=== PATIENT | female | born 1995 | race Caucasian/White ===

== ENCOUNTER → 2021-08-28 15:00 | Outpatient (CLI) | payer OTHER, SELFPAY ==
--- NOTE | ~2021-08-28 | US_ITS ---
EXAMINATION: US OB <= 14 weeks fetus DATE: 08/28/2021 15:22 INDICATION: Uncertain gestational dates TECHNIQUE: Real-time transabdominal obstetric ultrasound. FINDINGS: No prior studies for comparison. The uterus measures 14.6 x 7.6 x 8.6 cm. There is an intrauterine gestational sac, with pole id entified. The crown rump length measures 3.63 cm, which correlates with a estimated gestational age of 10 weeks 4 days. heart tones are identified measuring 165 bpm. There is a small subchorion ic hemorrhage near the fundus measuring 11 x 10 x 7 mm. There is a left ovarian cyst measuring 2.4 cm . IMPRESSION: 1. SL IUP with an EGA of 10 weeks weeks, 4 days (EDC by current ultrasound of 03/22/2022). 2: Small subchorionic hemorrhage near the fundus. Reviewed, dictated and finalized at location A. 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 SL IUP with an EGA of 10 weeks weeks, 4 days (EDC by current ultrasound of 0 03/22/2022). 2: Small subchorionic hemorrhage near the fundus.
== END ==
PROVIDERS: Visit Provider Nurse Practitioner
DX: Z34.91 Encounter for supervision of normal pregnancy, unspecified, first trimester (principal); Z3A.10 10 weeks gestation of pregnancy
CPT/HCPCS: 76801

== ENCOUNTER → 2021-09-14 13:31 | Outpatient (CLI) | payer OTHER, SELFPAY ==
--- NOTE | ~2021-09-14 | US_ITS ---
EXAMINATION: US OB limited DATE: 09/14/2021 13:50 INDICATION: Subchorionic hematoma during first trimester TECHNIQUE: Real-time ultrasound of the pelvis was performed. The interpreting radiologist was not pre sent for the study. COMPARISON: None. FINDINGS: The uterus measures 16.6 x 6.6 x 10.6 cm. There is a single living fetus in transverse lie. hea rt rate of 152 beats per minute (bpm). No evident subchorionic hematoma. There is a likely incidental placental shelf with small portion of the placental margin appears elevated elevated. The right ovar y measures 2.5 x 1.2 x 2.0 cm. The left ovary measures 4.0 x 3.1 x 4.0 cm containing a 2.9 x 1.9 x 2. 3 similar anechoic likely corpus luteum cyst. No evident free fluid in the pelvis. IMPRESSION: 1. Single living fetus in transverse lie with heart rate of 152 bpm. 2. Likely incidental small placental shelf, the majority of which resolved spontaneously although donovan e persist as a circumvallate placenta. Reviewed, dictated and finalized at location A. 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 Single living fetus in transverse lie with heart rate of 152 bpm. 2. Likely incidental small placental shelf, the majority of which resolved spon taneously although some persist as a circumvallate placenta.
== END ==
PROVIDERS: Visit Provider Obstetrics & Gynecology Gynecology
DX: O36.8910 Maternal care for other specified fetal problems, first trimester, not applicable or unspecified (principal)
CPT/HCPCS: 76815

== ENCOUNTER 2022-03-10 16:18 | Outpatient (CLI) | payer OTHER, SELFPAY ==
[2022-03-10 16:46] VITALS: BP 107/59; PULSE 83
[2022-03-10 16:56] VITALS: BP 107/59; PULSE 83
== END 2022-03-10 17:04 | disposition home or self-care (01) ==
LOC: ANHOBOP 16:54 → ANHLDR 03-20 06:33
PROVIDERS: Visit Provider Obstetrics & Gynecology Gynecology
DX: O42.90 Premature rupture of membranes, unspecified as to length of time between rupture and onset of labor, unspecified weeks of gestation (principal); Z3A.00 Weeks of gestation of pregnancy not specified
CPT/HCPCS: 59025; 84112; 99199

== ENCOUNTER 2022-03-15 15:44 | Inpatient (IN) | payer OTHER, SELFPAY ==
[2022-03-15] VITALS (14 sets, daily range): BP systolic 94–118; BP diastolic 52–72; PULSE 71–110; TEMP 36.4; BMI 30.9
[2022-03-15] MEDS: DINOPROSTONE 10 MG VAG INSERT VAGINAL (17:28)
--- NOTE | 2022-03-15 17:33 | LDADM ---
This patient, Constance Maguire, was admitted to Labor/Delivery/Recovery 109 on 03/15/22 at 15:44. Plans for labor, pain management and were discussed with patient. Patient/family oriented to hospital policies and general routines including ID bracelet, bed and alarms, visiting hours, pain management, procedures, bathroom and other care routines, personal items, smoking policy, room service/diet and guest tray routines, infant security routines, and visiting hours. Patient/Family are encouraged to report perceived risks to care and to ask questions if they do not understand what they are told or what they should do. See OBIX for further documentation.
[2022-03-15 17:48] LABS: Basophils Percent Auto 0.4 % (0.2-1.2); Eosinophils Percent Auto 0.5 % (0-4.4); Hematocrit 34.4 % (37.0-47.0); Hemoglobin 11.8 g/dL (12.0-15.0); Immature Granulocyte Absolute 0.03 K/mm3 (0.00-0.031); Immature Granulocyte Percent A 0.4 % (0-0.5); Lymphocytes Percent Auto 17.8 % (18.3-44.2); Mean Corpuscular HGB Conc 34.3 g/dl (32-36); Mean Corpuscular Hemoglobin 31.9 pg (26-34); Mean Platelet Volume 10.4 fl (7.4-10.4); Monocytes Absolute Auto 0.8 K/mm3 (0.1-0.6); Monocytes Percent Auto 9.4 % (2.6-8.5); Neutrophils Absolute Auto 6.1 K/mm3 (1.3-6.7); Neutrophils Percent Auto 71.5 % (45.5-73.1); Platelet Count Result 249 k/mm3 (150-375); Red Cell Distribution Width 12.4 % (11.5-14.5); White Blood Count 8.4 K/mm3 (4.5-10.0)
--- NOTE | 2022-03-15 18:04 | WPDANESEPP ---
Anes - Eval Pre Procedure Procedure: Labor Epidural Date/Time: 03/15/22 18:04 Surgeon: Jim Pre Op Diagnosis: iol Patient Data Age: 26 Gender: F Height: 1.7 m Weight: 89.5 kg Last Vital Signs Pulse 81 03/15/22 18:00 BP 108/63 03/15/22 18:00 O2 Del Method Room Air 03/15/22 17:31 Allergies Allergy/AdvReac Type Severity Reaction Status Date / Time No Known Allergies Allergy Verified 03/15/22 17:44 Home Medications Medication Instructions Recorded Confirmed Type vit no.95-ferrous 1 tablet PO DAILY 08/29/19 03/15/22 History fumarate 28 mg-folic acid 800 mcg tablet () docusate sodium 100 mg capsule 100 mg PO BID PRN Constipation #60 09/25/19 03/15/22 Rx caps aspirin 81 mg tablet,delayed 81 mg PO DAILY 03/05/22 03/15/22 History release (Mandie Low Dose Aspirin) ergocalciferol (vitamin D2) 1,250 1,250 mcg PO 2XW 03/05/22 03/15/22 History mcg (50,000 unit) capsule (Vitamin D2) Laboratory Tests 03/15/22 03/15/22 03/15/22 16:36 16:36 16:36 WBC Pending RBC Pending Hgb Pending Hct Pending MCV Pending MCH Pending MCHC Pending RDW Pending Plt Count Pending MPV Pending Immature Gran % (Auto) Pending Neut % (Auto) Pending Lymph % (Auto) Pending [place] % (Auto) Pending Eos % (Auto) Pending Baso % (Auto) Pending Lymph # (Auto) Pending [place] # (Auto) Pending Eos # (Auto) Pending Baso # (Auto) Pending Abs Immat Gran (auto) Pending Absolute Neuts (auto) Pending Absolute Nucleated RBC Pending Nucleated RBC % Pending RPR Pending Blood Type Pending Antibody Screen Pending Patient hx anesthesia problems: none Family hx anesthesia problems: none Results Review: All pre-operative results and documents have been reviewed as part of the pre-operative evaluation. [facility] Past Medical History Medical History (normal spontaneous vaginal delivery) Family History Family History Grandparent Family history of Parkinson's disease Family history of pancreatic cancer, Onset Age: 60 Family history of congestive heart failure Family history of cardiovascular disease Social History Social History Smoking status: Never smoker Alcohol intake: current Substance use: never Gender identity (if verbalized by the patient): Female Spiritual care concerns: No Exam Day of Procedure 03/15/22 18:04 Patient weight: obese Heart: regular rate and rhythm Lungs: normal air movement Airway: Mallampati scale Neurological: alert and oriented
[2022-03-16] VITALS (95 sets, daily range): BP systolic 58–133; BP diastolic 32–86; PULSE 59–287; TEMP 35.9–36.8; O2SAT 100
[2022-03-16] MEDS: OXYTOCIN 30 UNITS/NS 500 ML 30 UNITS/500 ML BAG IV CONT (06:51)
[2022-03-16] MEDS: LACTATED RINGERS 1,000 ML 125 ML IV CONT (06:51)
[2022-03-16 07:35] LABS: Rapid Plasma Reagin Non-Reactive (NonReactive)
--- NOTE | 2022-03-16 07:50 | WPDOBADMIT ---
Obstetrics - Admit Note Admission Note: record reviewed. No pertinent additions to the history and/or any subsequent changes in the physical findings that are not consistent with the expected course of the were found. Additions to the history and/or subsequent changes in the physical findings follow. Here for MIL at 39 wks. Cervadil last pm. Now Pitocin. Cervix /pph. FHTs reactive.
--- NOTE | 2022-03-16 12:57 | PM.OBPNLAB ---
Pain Control Date/time seen: 03/16/22 12:57 Pain control: epidural Pelvic Exam Dilation (cm): 3 Effacement (%): 70 station: -3 Amniotic membrane status: Ruptured (AROM with clear fluid) Contractions Contraction pattern: Regular Status status: Category l
[2022-03-17] VITALS (56 sets, daily range): BP systolic 85–258; BP diastolic 51–225; PULSE 63–137; RESP 14–18; TEMP 36.4–37.4; O2SAT 95–100
--- NOTE | 2022-03-17 01:42 | PM.IMHP ---
H&P: HPI History of Present Illness Date/Time: 03/17/22 01:42 Chief Complaint: breech Narrative: 26 yo at 39 2/7 wks here for MIL. Noted by RN to be breech. U/s verified. Recommend to proceed with csection. Reviewed procedure. Patient agrees. Also, as discussed in office and now, if csection, wants BTL. Will proceed with BTL. Risks of failure with increased ectopic if fails discussed. Pt. is aware this is a permanent and irreversible sterilizing procedure. Labs: A+, RPR -; Rubella immune, HIV -, HepBSAg -, GBS-. [facility] Past Medical History Medical History (Updated 03/17/22 @ 01:51 by Violet Fernandez MD) (normal spontaneous vaginal delivery) Surgical History Surgical History (Updated 03/17/22 @ 01:49 by Violet Fernandez MD) H/O laparoscopy 2017-endometriosis Family History Family History Grandparent Family history of Parkinson's disease Family history of pancreatic cancer, Onset Age: 60 Family history of congestive heart failure Family history of cardiovascular disease Social History Social History Smoking status: Never smoker Alcohol intake: current Substance use: never Gender identity (if verbalized by the patient): Female Spiritual care concerns: No Meds Home Medications and Allergies Home Medications Medication Instructions Recorded Confirmed Type vit no.95-ferrous 1 tablet PO DAILY 08/29/19 03/15/22 History fumarate 28 mg-folic acid 800 mcg tablet () docusate sodium 100 mg capsule 100 mg PO BID PRN Constipation #60 09/25/19 03/15/22 Rx caps aspirin 81 mg tablet,delayed 81 mg PO DAILY 03/05/22 03/15/22 History release (Mandie Low Dose Aspirin) ergocalciferol (vitamin D2) 1,250 1,250 mcg PO 2XW 03/05/22 03/15/22 History mcg (50,000 unit) capsule (Vitamin D2) Allergies Allergy/AdvReac Type Severity Reaction Status Date / Time No Known Allergies Allergy Verified 03/15/22 17:44 Vital Signs Vital Signs - 24 hr 03/16/22 05:32 03/16/22 05:30 03/16/22 06:46 Temperature 97.6 F Pulse Rate 93 95 Blood Pressure 115/66 120/74 Pulse Oximetry 03/16/22 07:00 03/16/22 07:15 03/16/22 07:31 Temperature 98 F Pulse Rate 83 84 77 Blood Pressure 117/67 127/65 115/63 Pulse Oximetry 03/16/22 08:31 03/16/22 08:45 03/16/22 09:01 Temperature Pulse Rate 83 79 68 Blood Pressure 111/66 114/70 105/59 L Pulse Oximetry 03/16/22 09:15 03/16/22 09:31 03/16/22 09:45 Temperature Pulse Rate 74 83 77 Blood Pressure 109/68 94/64 L 114/66 Pulse Oximetry 03/16/22 10:00 03/16/22 10:16 03/16/22 10:31 Temperature Pulse Rate 68 76 78 Blood Pressure 121/64 133/67 114/43 L Pulse Oximetry 03/16/22 10:58 03/16/22 10:59 03/16/22 11:03 Temperature Pulse Rate 167 H Blood Pressure 106/81 Pulse Oximetry 100 100 03/16/22 11:07 03/16/22 11:09 03/16/22 11:12 Temperature Pulse Rate 87 Blood Pressure 117/67 Pulse Oximetry 100 100 03/16/22 11:14 03/16/22 11:15 03/16/22 11:16 Temperature Pulse Rate 87 85 86 Blood Pressure 121/71 107/67 117/60 Pulse Oximetry 03/16/22 11:18 03/16/22 11:20 03/16/22 11:22 Temperature Pulse Rate 92 85 91 Blood Pressure 118/74 116/64 117/78 Pulse Oximetry 100 03/16/22 11:23 03/16/22 11:24 03/16/22 11:26 Temperature Pulse Rate 92 97 Blood Pressure 118/67 113/68 Pulse Oximetry 100 03/16/22 11:28 03/16/22 11:31 03/16/22 11:32 Temperature Pulse Rate 93 106 H 94 Blood Pressure 112/74 113/75 109/76 Pulse Oximetry 100 03/16/22 11:33 03/16/22 11:34 03/16/22 11:36 Temperature Pulse Rate 97 73 Blood Pressure 110/69 115/62 Pulse Oximetry 100 03/16/22 11:38 03/16/22 11:40 03/16/22 11:42 Temperature Pulse Rate 98 75 85 Blood Pressure 112/63 106/62 110/55 L Puls
--- NOTE | 2022-03-17 01:52 | PM.OBDSVD ---
DS: Admitting Diagnosis Discharge Date 03/19/22 Admitting Diagnosis 39 wks for RIKKI DS: Discharge Diagnosis Discharge Diagnosis (1) 39 weeks gestation of : Code(s): Z3A.39 - 39 weeks gestation of Status: Acute (2) Breech presentation: Code(s): O32.1XX0 - Maternal care for breech presentation, not applicable or unspecified Status: Acute (3) Encounter for sterilization: Code(s): Z30.2 - Encounter for sterilization Status: Acute (4) delivery delivered: Code(s): O82 - Encounter for delivery without indication Status: Acute OB - DS: Summary OB Procedures : Ultrasound OB Procedures Intrapartum: low cervical, transverse and Tubal ligation OB Procedures: : None Peripartum Data Infant Delivery Method: Section Procedures: Procedures Operation Date: 03/17/22 01:45 <No data on this case meets the specified criteria> Status at Discharge Functional status at discharge: independent ambulation Overall status at discharge: patient is progressing back to baseline Time Spent with Patient Time attestation: Total time spent providing and/or coordinating discharge services: DS: Data Data Completed and Pending Labs on day of discharge: Labs from last 24 hours 03/15/22 16:36 RPR Non-reactive Discharge Plan Discharge Attending physician on discharge: Violet Fernandez Discharging Clinician: Violet Fernandez Anticipated Discharge Date/Time: 03/20/22 01:53 Patient Disposition: Home, Self-Care Activity: may shower, may drive after 2 weeks and pelvic rest Diet: regular Wound Care Instructions: incision open to air Patient Instructions: Antibiotic Form Stand Alone Forms: General Discharge Information Follow-up/Referrals: Violet Fernandez MD [Physician] - 1 Week (and 6 wk) Discharge Medications: Continued PNV cmb#95-ferrous fumarate-FA [] 28 mg iron- 800 mcg Tablet 1 tablet PO DAILY docusate sodium 100 mg Capsule 100 mg PO BID PRN (Reason: Constipation) Qty: 60 0RF ergocalciferol (vitamin D2) [Vitamin D2] 1,250 mcg (50,000 unit) Capsule 1,250 mcg PO 2XW Discontinued aspirin [Mandie Low Dose Aspirin] 81 mg Tablet,Delayed Release (Dr/Ec) 81 mg PO DAILY Date of admission: 03/15/22 15:44 Primary Care Provider: PHYSICIAN,AUTOMATIC LATHE SETTER Admitting Provider: Violet Fernandez Attending physician on admission: Violet Fernandez Condition: Stable
[2022-03-17] MEDS: ceFAZolin 2 GM/D5W 50 ML 2 GM/50 ML BAG IVPB (01:53)
--- NOTE | 2022-03-17 01:59 | W.PM.PROC2 ---
Procedure Note - Detailed Date of Procedure 03/17/22 Pre-op Diagnosis 39 weeks breech Requests sterilization Post-op Diagnosis Same Procedure Performed LTCS and BTL Surgeon Violet Fernandez MD Anesthesia Epidural Findings Female infant 7lb 8oz complete breech presentation with Apgars of 8 [id number] 9 [id number]. Normal-appearing uterus, tubes, and ovaries. The tubes are noted to be shorter than average Description of Procedure the patient is taken to the operating room and placed under anesthesia in the dorsal supine position with a leftward tilt. Once anesthesia was deemed adequate, she was prepped and draped. The Pfannenstiel skin incision was made with a scalpel and carried down to the underlying layer of fascia. Fascia was nicked in the midline with a scalpel and extended laterally using Tenorio scissors. Ochsner was used to tent the fascia which was then dissected off using sharp and blunt dissection. The rectus muscles were in the midline and the peritoneum tented with a [place]. The peritoneum was entered with Metzenbaum scissors. The incision was extended with blunt traction. The bladder blade is placed. The vesicouterine peritoneum was grasped and entered with Metzenbaum scissors. The incision was extended laterally and the bladder flap created digitally. The lower urine segment was incised in a transverse fashion with the scalpel. The breech is identified and elevated into the incision. The infant was fully delivered to the scapula and was then rotated to allow delivery of the right arm which was splinted and delivered. The infant was rotated and the left arm was splinted and delivered and the head spontaneously delivered. The cord was clamped and cut and the infant handed to the waiting nursery nurse. Cord gases and bladder taken. The placenta was removed using manual traction. The uterus is cleared of all clots and debris and exteriorized. The uterine incision was closed using 0 Monocryl in a running locked fashion. Same suture was used to imbricate. Good hemostasis is noted. The patient was asked to additional time if she was proceeding with the tubal ligation and she stated she wanted to proceed. The right tube was grasped with a [place] and the distal 2/3 of the tube are cross clamped with [place] clamp. The tube was excised. The pedicle is tied off using 0 Vicryl in a Loki stitch and then free tied. The identical procedure was performed on the opposite side. Good hemostasis is noted at both tubal sites. The cul-de-sac is irrigated and the uterus returned to the abdomen. The incision was again inspected and noted to be hemostatic. The fascia was closed using 0 Vicryl in a running fashion. Subcutaneous tissues were irrigated and made hemostatic using Bovie cautery. Skin incision was closed using 4-0 Vicryl in a subcuticular fashion. Dermaflex was placed over the incision. Ancef was given prior to incision. Sponge, needle, and instrument counts are correct per the OR staff. Patient was taken to the recovery room in stable condition. Estimated Blood Loss 585 Drains Yes (perry) Pathology Yes (tubes) Complications No immediate complications Condition Stable Disposition Floor
--- NOTE | 2022-03-17 02:22 | WPDANESEPPF ---
Anes - Initial Pre Proc Eval Procedure: Operation Date: 03/17/22 01:45 Proposed Procedures p Section - Violet Fernandez MD Date/Time: 03/17/22 02:22 Surgeon: Violet Fernandez MD Pre Op Diagnosis: iol Patient Data Age: 26 Gender: F Height: 1.7 m Weight: 89.5 kg Last Vital Signs Temp 36.7 C 03/17/22 00:37 Pulse 137 H 03/17/22 01:30 BP 110/93 H 03/17/22 01:30 Pulse Ox 100 03/16/22 11:53 O2 Del Method Room Air 03/15/22 17:31 Allergies Allergy/AdvReac Type Severity Reaction Status Date / Time No Known Allergies Allergy Verified 03/15/22 17:44 Home Medications Medication Instructions Recorded Confirmed Type vit no.95-ferrous 1 tablet PO DAILY 08/29/19 03/15/22 History fumarate 28 mg-folic acid 800 mcg tablet () docusate sodium 100 mg capsule 100 mg PO BID PRN Constipation #60 09/25/19 03/15/22 Rx caps aspirin 81 mg tablet,delayed 81 mg PO DAILY 03/05/22 03/15/22 History release (Mandie Low Dose Aspirin) ergocalciferol (vitamin D2) 1,250 1,250 mcg PO 2XW 03/05/22 03/15/22 History mcg (50,000 unit) capsule (Vitamin D2) Laboratory Tests 03/15/22 16:36 RPR Non-reactive (NonReactive) Patient hx anesthesia problems: none Family hx anesthesia problems: none Results Review: All pre-operative results and documents have been reviewed as part of the pre-operative evaluation. [facility] Past Medical History Medical History (Updated 03/17/22 @ 01:52 by Violet Fernandez MD) (normal spontaneous vaginal delivery) Surgical History Surgical History (Updated 03/17/22 @ 01:49 by Violet Fernandez MD) H/O laparoscopy 2017-endometriosis Family History Family History Grandparent Family history of Parkinson's disease Family history of pancreatic cancer, Onset Age: 60 Family history of congestive heart failure Family history of cardiovascular disease Social History Social History Smoking status: Never smoker Alcohol intake: current Substance use: never Gender identity (if verbalized by the patient): Female Spiritual care concerns: No Anes - Eval Final PreProcedure Day of Procedure 03/17/22 02:22 Patient weight: obese Heart: regular rate and rhythm Lungs: clear to auscultation and normal air movement Airway: Mallampati scale class II Neurological: alert and oriented Last oral intake: >/= 8 hours ASA classification: II Emergent: no Anesthetic plan: proceed Anesthesia type and monitoring: regional spinal and standard monitoring Results Review: All pre-operative results and documents have been reviewed as part of the pre-operative evaluation. Informed Consent: The patient's anesthetic plan and its attendant risks and benefits were discussed with the patient/family/POA. Questions were solicited and answers provided to the satisfaction of the patient/family/POA.
[2022-03-17] MEDS: OXYTOCIN 30 UNITS/NS 500 ML 30 UNITS/500 ML BAG 125 UNITS IV CONT (04:58)
--- NOTE | 2022-03-17 05:38 | PC.NURSE ---
This patient, Constance Maguire, was received from [labor and delivery ] on 03/17/22 at 0516. Patient/family oriented to unit policies and routines
[2022-03-17] MEDS: LORATADINE 10 MG TABLET PO (07:29)
[2022-03-17] MEDS: ONDANSETRON INJ 4 MG/2 ML VIAL IV PUSH (09:34)
[2022-03-17] MEDS: DEXTROSE 5%/0.45% SOD CHL 1,000 ML 125 ML IV CONT (09:34)
[2022-03-17] MEDS: DOCUSATE SODIUM 100 MG CAPSULE PO (17:28)
[2022-03-18 04:32] LABS: Basophils Percent Auto 0.3 % (0.2-1.2); Eosinophils Absolute Auto 0.1 K/mm3 (0-0.3); Eosinophils Percent Auto 0.6 % (0-4.4); Hematocrit 28.8 % (37.0-47.0); Immature Granulocyte Absolute 0.06 K/mm3 (0.00-0.031); Immature Granulocyte Percent A 0.5 % (0-0.5); Lymphocytes Absolute Auto 1.28 K/mm3 (0.9-3.2); Lymphocytes Percent Auto 11.3 % (18.3-44.2); Mean Corpuscular HGB Conc 34.7 g/dl (32-36); Mean Corpuscular Hemoglobin 32.5 pg (26-34); Mean Corpuscular Volume 93.5 fl (80-100); Mean Platelet Volume 10.1 fl (7.4-10.4); Monocytes Absolute Auto 0.9 K/mm3 (0.1-0.6); Monocytes Percent Auto 8.2 % (2.6-8.5); Neutrophils Percent Auto 79.1 % (45.5-73.1); Platelet Count Result 191 k/mm3 (150-375); Red Blood Count 3.08 M/mm3 (4.2-5.4); Red Cell Distribution Width 12.5 % (11.5-14.5); White Blood Count 11.3 K/mm3 (4.5-10.0)
--- NOTE | 2022-03-18 07:22 | WPDANLDPN2 ---
Anes-Prog Note L&D Date/Time: 03/18/22 07:22 Comfortable throughout: section Neuraxial method: epidural Neuro status: Neuro function grossly intact. Cardiovascular status: normal Respiratory status: normal Airway patency: baseline Mental status: baseline Post-Op hydration status: normal Vital Signs: Last Vital Signs Temp 37.1 C 03/17/22 23:00 Pulse 78 03/17/22 23:00 Resp 18 03/17/22 23:00 BP 100/54 L 03/17/22 23:00 Pulse Ox 99 03/17/22 04:39 O2 Del Method Room Air 03/17/22 23:00 Pain score (VAS): <3 I/O: Intake & Output 03/17/22 03/17/22 03/18/22 15:59 23:59 07:59 Intake Total 100 1400 Output Total 1100 2450 Balance -1000 -1050 Patient feedback: Patient satisfied with anesthetic care.
--- NOTE | 2022-03-18 07:23 | WPDANLDNPN2 ---
Anes-Prog Note L&D-Neuraxial Date/Time: 03/18/22 07:23 Neuraxial medications: epidural PF morphine Opiod-related complaints: none Patient feedback: Patient satisfied with post-operative pain management.
--- NOTE | 2022-03-18 07:45 | PC.NURSE ---
PT introductions made and plan of care discussed per post op c section, pain management, daily care activities and breast feeding. PT received instructions per one to one discussion, mom baby care guide and demonstrations this shift. PT and spouse both recipients of such instructions and no barriers to learning identified at this time. PT eager to be instructed and verbalized understanding of such instructions.
[2022-03-18] MEDS: MULTIVIT/MIN/PREN/FOL AC/IRON TABLET 1 TAB PO (09:09)
[2022-03-18] MEDS: DOCUSATE SODIUM 100 MG CAPSULE PO ×2 (09:10→17:43)
[2022-03-18] MEDS: IBUPROFEN 600 MG TABLET PO ×2 (09:11→17:42)
[2022-03-18] MEDS: ACETAMINOPHEN 325 MG TABLET 650 MG PO ×2 (09:11→17:42)
[2022-03-18] MEDS: LANOLIN (LANSINOH) 7.5 GM CREAM 1 APPLIC TOPICAL (09:17)
--- NOTE | 2022-03-18 09:41 | PM.OBPNVD ---
OB - PN: Subj Subjective Date/time seen: 03/18/22 09:41 Patient comments: no complaints and pain well controlled baby status: doing well OB - PN: Obj Data Labs CBC & Chem 7: 03/18/22 04:09 Labs: Laboratory Results - last 24 hr 03/18/22 04:09 WBC 11.3 H RBC 3.08 L Hgb 10.0 L Hct 28.8 L MCV 93.5 MCH 32.5 MCHC 34.7 RDW 12.5 Plt Count 191 MPV 10.1 Immature Gran % (Auto) 0.5 Neut % (Auto) 79.1 H Lymph % (Auto) 11.3 L [place] % (Auto) 8.2 Eos % (Auto) 0.6 Baso % (Auto) 0.3 Lymph # (Auto) 1.28 [place] # (Auto) 0.9 H Eos # (Auto) 0.1 Baso # (Auto) 0.0 Abs Immat Gran (auto) 0.06 H Absolute Neuts (auto) 9.0 H Absolute Nucleated RBC 0.0 Nucleated RBC % 0.0 OB - PN A/P Plan day: 1 Plan: routine care Time Spent With Patient Time: Total time spent is greater than 50% in coordination of care (as documented) at patient's floor/unit and/or counseling patient: Exam Narrative: Inc c/d/i bruising below incision : Bimanual exam- vagina & uterus: other (Uterus firm, nt @U)
[2022-03-18 10:11] VITALS: BP 105/59; PULSE 81; RESP 16; TEMP 36.9; O2SAT 96
[2022-03-18] MEDS: SIMETHICONE 80 MG TAB.CHEW PO (17:43)
[2022-03-18 19:51] VITALS: BP 110/71; PULSE 81; RESP 18; TEMP 36.7; O2SAT 100
[2022-03-19 07:30] VITALS: BP 105/70; PULSE 81; RESP 16; TEMP 36.6; O2SAT 100
[2022-03-19 08:30] VITALS: PULSE 81; RESP 16; O2SAT 100
[2022-03-19] MEDS: IBUPROFEN 600 MG TABLET PO (08:38)
[2022-03-19] MEDS: DOCUSATE SODIUM 100 MG CAPSULE PO (08:38)
[2022-03-19] MEDS: MULTIVIT/MIN/PREN/FOL AC/IRON TABLET 1 TAB PO (08:39)
--- NOTE | 2022-03-19 10:21 | PM.OBPNVD ---
OB - PN: Subj Subjective Date/time seen: 03/19/22 10:21 Patient comments: no complaints and pain well controlled baby status: doing well OB - PN: Obj Data Labs CBC & Chem 7: 03/18/22 04:09 OB - PN A/P Plan day: 2 Plan: routine care and discharge home Time Spent With Patient Time: Total time spent is greater than 50% in coordination of care (as documented) at patient's floor/unit and/or counseling patient: Exam Narrative: inc c/d/i bruised : Bimanual exam- vagina & uterus: other (Uterus firm, nt @U)
[2022-03-20 08:16] VITALS: BP 111/67; PULSE 86; RESP 20; TEMP 37; O2SAT 99
== END 2022-03-19 11:39 | disposition home or self-care (01) | DRG 784 ==
LOC: ANHLDR 03-17 01:55 → ANHOB2 03-17 05:42
PROVIDERS: Admitting Provider Obstetrics & Gynecology Gynecology; Visit Provider Obstetrics & Gynecology Gynecology
PROC: 10D00Z1 Extraction of Products of Conception, Low, Open Approach (ICD-10-PCS; CPT 59514; principal; 2022-03-17 01:45)
DX: O32.1XX0 Maternal care for breech presentation, not applicable or unspecified (principal); O63.9 Long labor, unspecified; Z30.2 Encounter for sterilization; Z3A.39 39 weeks gestation of pregnancy; Z37.0 Single live birth
CPT/HCPCS: 36415; 85025; 86592; 86850; 86900; 86901; 88302; A9270; J0690; J2001; J2274; J2405; J2590; J2795; J7120

== ENCOUNTER 2024-04-16 09:09 | Outpatient (CLI) | payer OTHER, SELFPAY ==
--- NOTE | ~2024-04-16 | XR_ITS ---
XR ankle LT min 3V Ordering provider: Sherly Freeman MD History: . M25.572 - Pain in left ankle and joints of left foot . Comparison: None. FINDINGS: BONES: No acute fracture or dislocation. JOINT SPACES: The ankle mortise is normal. SOFT TISSUES: Normal. IMPRESSION: No acute osseous abnormality left ankle. Reviewed, dictated and finalized at location A.
== END 2024-04-16 09:10 ==
LOC: MICIMG 09:11
PROVIDERS: PCP Family Medicine; Visit Provider Family Medicine
DX: M25.572 Pain in left ankle and joints of left foot (principal)
CPT/HCPCS: 73610

== ENCOUNTER 2024-05-27 11:42 | Outpatient (CLI) | payer OTHER, SELFPAY ==
--- NOTE | ~2024-05-27 | US_ITS ---
EXAMINATION TYPE: US breast LT complete COMPARISON: NONE REASON FOR STUDY: L breast pain TECHNIQUE: Sonographic evaluation of the left breast was performed. INTERPRETATION: No solid or cystic mass lesion identified. Normal fibroglandular tissue evident. No sonographic abnor mality seen. IMPRESSION: Negative. No significant abnormality seen. BI-RADS CATEGORY: BI-RADS 1: Normal Reviewed, dictated and finalized at location .
== END 2024-05-27 11:43 | disposition home or self-care (01) ==
LOC: MICIMG 11:43
PROVIDERS: PCP Family Medicine; Visit Provider Nurse Practitioner
DX: N64.4 Mastodynia (principal)
CPT/HCPCS: 76641